=== PATIENT | male | born 1950 | race Two or more races ===

== ENCOUNTER 2017-03-06 22:40 | Inpatient (IN) | payer MEDICARE ==
[~2017-03-06] VITALS: Ht 182.9 cm; Wt 77.1 kg
[2017-03-06 23:00] VITALS: BP 136/63
[2017-03-06] MEDS ORDERED: MAG HYDROX/AL HYDROX/SIMETH 30 ML UDC PO PRN (23:00)
[2017-03-06] MEDS ORDERED: OLANZAPINE 10 MG VIAL IM ONE ×2 (23:00→23:30)
[2017-03-06] MEDS ORDERED: MAGNESIUM HYDROXIDE 30 ML UDC PO PRN (23:00)
--- NOTE | 2017-03-06 23:10 | NUR ---
GPS/RN PATIENT BECAME AGITATED, COMBATIVE, AGGRESSIVE, YELLING/SCREAMING, THREATENING STAFF SOON HE ARRIVED IN THE UNIT. CALLED SECURITY. CALLED DR. ZALDIVAR FOR IM ORDER AND INFORMED ABOUT PATIENT'S BEHAVIOR. ORDERED ZYPREXA 10MG IM NOTED AND CARRIED OUT. PREPARE AND ADMINISTER. PT TOLERATED WELL. V/S STABLE. WILL CONTINUE TO MONITOR FOR SAFETY AND BEHAVIOR [id number].
--- NOTE | 2017-03-06 23:10 | NUR ---
REFUSED MRSA SWAB.
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
[2017-03-07] MEDS ORDERED: LORAZEPAM 0.5 MG TABLET ONE (00:05)
[2017-03-07] MEDS ORDERED: TEMAZEPAM 7.5 MG CAPSULE ONE (00:06)
[2017-03-07] MEDS: TEMAZEPAM 7.5 MG CAPSULE PO PRN ×2 (00:12→21:59)
[2017-03-07 01:58] VITALS: BP 136/63
[2017-03-07] MEDS ORDERED: HYDROCODONE/APAP 5/325MG 1 EACH TABLET PO PRN (02:00)
[2017-03-07] MEDS: LORAZEPAM 0.5 MG TABLET PO PRN (03:11)
[2017-03-07 06:32] LABS: BASOPHILS % (AUTO) 0.5 % (0.0-2.0); EOSINOPHILS # (AUTO) 0.1 /CMM (0.0-0.7); EOSINOPHILS % (AUTO) 1.8 % (0.0-6.0); HEMATOCRIT 35 % (39-51); HEMOGLOBIN 11.5 g/dL (13.5-17.5); LYMPHOCYTES # (AUTO) 1.7 /CMM (0.8-4.8); LYMPHOCYTES % (AUTO) 25.6 % (20.0-44.0); MEAN CORPUSCULAR HEMOGLOBIN 29 PG (26.0-33.0); MEAN CORPUSCULAR HGB CONC 33 g/dl (31.0-36.0); MEAN CORPUSCULAR VOLUME 89 fL (80-96); MONOCYTES # (AUTO) 0.4 /CMM (0.1-1.30); MONOCYTES % (AUTO) 6.1 % (2.0-12.0); NEUTROPHILS # (AUTO) 4.3 /CMM (1.8-8.9); PLATELET COUNT (AUTO) 212 /CMM (150-450); RDW COEFFICIENT OF VARIATION 14.3 (11.5-15.0); WHITE BLOOD COUNT (AUTO) 6.5 K/uL (4.3-11.0)
[2017-03-07] MEDS ORDERED: OLANZAPINE 10 MG VIAL IM ONE ×2 (06:32→07:00)
--- NOTE | 2017-03-07 07:16 | NUR ---
GPS-RN PT IS AGITATED, AGGRESSIVE, THREATENING STAFF. CALLED DR ZALDIVAR FOR IM ORDER. BY THE TIME CHARGE NURSE WAS ABOUT TO GIVE THE IM SHOT. PT STARTED TO CALM DOWN AND COOPERATE WITH THE STAFF. WASTED ZYPREXA 10MG. WILL CONTINUE TO MONITOR FOR SAFETY AND BEHAVIOR [id number].
[2017-03-07] MEDS ORDERED: NAPR500T3 PO (07:35)
[2017-03-07] MEDS ORDERED: CYCL5TAB PO (07:35)
[2017-03-07 07:40] LABS: ALBUMIN 3.2 g/dL (3.4-5.0); BILIRUBIN,TOTAL 0.2 mg/dL (0.2-1.0); CALCIUM, SERUM 9.5 mg/dL (8.5-10.1); CREATININE 0.9 mg/dL (0.6-1.3); POTASSIUM 4.9 mmol/L (3.5-5.1)
[2017-03-07 07:43] LABS: CHOLESTEROL 146 mg/dL (<200); HDL CHOLESTEROL 51 mg/dL (40-60); LDL 84 mg/dL (0-99); TRIGLYCERIDES 95 mg/dL (30-150)
[2017-03-07 08:00] VITALS: BP 113/57
[2017-03-07] MEDS ORDERED: FIXODENT 1 EA TUBE MM PRN (09:30)
[2017-03-07] MEDS: DIVALPROEX SODIUM 125 MG CAP.SPRINK PO SCH ×2 (13:50→21:19)
[2017-03-07] MEDS: OLANZAPINE 5 MG/TAB.RAPDIS PO SCH ×2 (13:50→17:57)
[2017-03-07] MEDS: CYCLOBENZAPRINE 10 MG TABLET PO SCH ×2 (13:50→17:00)
[2017-03-07 16:00] VITALS: BP 134/66
[2017-03-07] MEDS: NAPROXEN 500 MG TABLET PO SCH (17:00)
[2017-03-07 20:00] VITALS: BP 109/55
[2017-03-08 08:00] VITALS: BP 114/69
[2017-03-08] MEDS: OLANZAPINE 5 MG/TAB.RAPDIS PO SCH ×3 (08:59→16:25)
[2017-03-08] MEDS: CYCLOBENZAPRINE 10 MG TABLET PO SCH ×3 (09:00→16:25)
[2017-03-08] MEDS: NAPROXEN 500 MG TABLET PO SCH ×2 (09:00→16:29)
[2017-03-08] MEDS: DIVALPROEX SODIUM 125 MG CAP.SPRINK PO SCH ×2 (09:00→21:00)
[2017-03-08] MEDS: LORAZEPAM 0.5 MG TABLET PO PRN (09:01)
--- NOTE | 2017-03-08 12:40 | NUR ---
GPS RN NOTE: PATIENT REFUSED MEDICATIONS 1300 DR ZALDIVAR AWARE NO NEW ORDERS AT THIS TIME
[2017-03-08 15:47] VITALS: BP 127/67
[2017-03-08 19:55] VITALS: BP 113/60
[2017-03-09 08:00] VITALS: BP 123/72
[2017-03-09] MEDS: CYCLOBENZAPRINE 10 MG TABLET PO SCH ×3 (08:04→16:38)
[2017-03-09] MEDS: NAPROXEN 500 MG TABLET PO SCH ×2 (08:04→16:37)
[2017-03-09] MEDS: OLANZAPINE 5 MG/TAB.RAPDIS PO SCH ×2 (08:10→16:38)
[2017-03-09] MEDS: DIVALPROEX SODIUM 125 MG CAP.SPRINK PO SCH ×2 (08:10→21:00)
--- NOTE | 2017-03-09 09:39 | NUR ---
GPS/RN PT REFUSED 0900 MEDS OFFERED X3. PT TOOK SELECTIVE MEDS,PT IS PARANOID HYPERVERBAL, EXPLAINED OF BENEFITS OF MEDS STILL REFUSED
[2017-03-09] MEDS: LORAZEPAM 0.5 MG TABLET PO PRN (10:46)
--- NOTE | 2017-03-09 10:57 | NUR ---
GPS RN: PATIENT IS INCREASINGLY ANXIOUS, RESTLESS, HYPERVERBAL, WITH EPISODES OF, CONFUSED, HARD TO REDIRECT. ADMINISTERED ATIVAN 0.5MG PO PRN ORDERED. VS STABLE, CONTINUE TO MONITOR
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
[2017-03-09] MEDS ORDERED: OLANZAPINE 10 MG VIAL IM STA ×2 (12:01→12:13)
--- NOTE | 2017-03-09 13:11 | NUR ---
GPS RN: PATIENT IS INCREASINGLY ANXIOUS,COMBATIVE, THREATENING TO STAFF, RESTLESS, HYPERVERBAL, WITH EPISODES OF, CONFUSED, HARD TO REDIRECT. ESCORTED TO PT BACK TO ROOM TO DECREASE STIMULI. PROVIDE A CALM AND QUIET ENVIRONMENT. PT STILL AGGRESSIVE, NON-REDIRECTABLE, UNABLE TO FOLLOW RULES. WAS NOTIFIED ABOUT PT'S BEHAVIOR. DR. ZALDIVAR ORDERED ZYPREXA 10 MG IM. VS STABLE, CONTINUE TO MONITOR FOR SAFETY AND BEHAVIOR EVERY 30 MINUTES.
--- NOTE | 2017-03-09 13:28 | NUR ---
WOUND CARE CONSULT: PATIENT SEEN, SKIN ASSESSMENT NOT DONE DUE TO PATIENT AGGRESSIVE PER NURSING STAFF AND HE WAS JUST GIVEN INJECTIBLE MEDICATION. WILL FOLLOW UP AT A LATER TIME WHEN PATIENT CONDITION PERMITS.
--- NOTE | 2017-03-09 14:34 | NUR ---
GPS/RN PT REFUSED 1300 PM MEDS OFFERED X3,PT IS PARANOID HYPERVERBAL, EXPLAINED OF BENEFITS OF MEDS STILL REFUSED
[2017-03-09 16:00] VITALS: BP 124/65
--- NOTE | 2017-03-09 16:12 | NUR ---
Initial Discharge Plan: Patient is homeless in [facility]. Human Resources Intern asked him if he wanted placement or prison. Patient stated that he wanted "nothing." Human Resources Intern will follow-up with MD, and patient regarding appropriate discharge and will help form a safe and proper discharge. Human Resources Intern will provide patient with substance abuse and smoking cessation referrals to patient upon discharge.
[2017-03-09 19:41] VITALS: BP 128/79
[2017-03-10 08:00] VITALS: BP 154/71
[2017-03-10] MEDS: OLANZAPINE 5 MG/TAB.RAPDIS PO SCH ×2 (08:17→16:06)
[2017-03-10] MEDS: DIVALPROEX SODIUM 125 MG CAP.SPRINK PO SCH ×2 (08:17→21:24)
[2017-03-10] MEDS: NAPROXEN 500 MG TABLET PO SCH ×2 (08:17→16:05)
[2017-03-10] MEDS: CYCLOBENZAPRINE 10 MG TABLET PO SCH ×3 (08:17→16:05)
--- NOTE | 2017-03-10 08:51 | NUR ---
Reviewed psychosocial done by Marisa Nguyen and concur.
--- NOTE | 2017-03-10 08:54 | NUR ---
[email or web address] Addendum: 03/10/17 at 0911 by JAZ GORMAN Amended: Links added.
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
--- NOTE | 2017-03-10 14:56 | NUR ---
Steel Spar Operator spoke to patient regarding his discharge plan. According to the 5150 patient has been homeless for many years and lives in [facility]. 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
[2017-03-10 15:11] VITALS: BP 145/81
[2017-03-10 20:02] VITALS: BP 144/85
[2017-03-11 08:00] VITALS: BP 160/74
[2017-03-11] MEDS: NAPROXEN 500 MG TABLET PO SCH ×2 (08:28→16:13)
[2017-03-11] MEDS: CYCLOBENZAPRINE 10 MG TABLET PO SCH ×3 (08:28→16:13)
[2017-03-11] MEDS: DIVALPROEX SODIUM 125 MG CAP.SPRINK PO SCH ×2 (08:29→20:44)
[2017-03-11] MEDS: OLANZAPINE 5 MG/TAB.RAPDIS PO SCH ×2 (08:29→16:12)
[2017-03-11] MEDS ORDERED: DIVALPROEX SODIUM 250 MG TABLET.DR PO STA (11:06)
[2017-03-11] MEDS ORDERED: OLANZAPINE 10 MG VIAL IM PRN (11:30)
[2017-03-11] MEDS: LORAZEPAM 0.5 MG TABLET PO PRN (14:30)
--- NOTE | 2017-03-11 14:30 | NUR ---
GPS/RN PATIENT AGITATED, ANXIOUS, PACING IN HALLWAY, YELLING, INTRUSIVE, NON REDIRECTABLE, ADMINISTERED ATIVAN PO ORDERED, , WILL CONTINUE TO MONITOR Q 15 MIN FOR SAFETY AND BEHAVIOR.
[2017-03-11 16:00] VITALS: BP 128/74
[2017-03-11 20:42] VITALS: BP 123/52
[2017-03-12 08:09] VITALS: BP 105/60
[2017-03-12] MEDS: NAPROXEN 500 MG TABLET PO SCH ×3 (08:34→17:18)
[2017-03-12] MEDS: OLANZAPINE 5 MG/TAB.RAPDIS PO SCH ×2 (08:34→17:18)
[2017-03-12] MEDS: CYCLOBENZAPRINE 10 MG TABLET PO SCH ×3 (08:35→17:18)
[2017-03-12] MEDS: DIVALPROEX SODIUM 125 MG CAP.SPRINK PO SCH ×3 (08:37→20:13)
--- NOTE | 2017-03-12 09:15 | NUR ---
GPS/RN PATIENT SELECTIVE WITH MEDICATIONS, REFUSED DEPAKOTE 500MG, NAPROXEN 500MG, EXPLAINED RISKS AND BENEFITS, CONTINUES TO ADAMANTLY REFUSE, WILL CONTINUE TO ENCOURAGE AND EDUCATE PATIENT ON THE IMPORTANCE OF COMPLYING WITH MD REGIMEN.
[2017-03-12 15:48] VITALS: BP 119/65
--- NOTE | 2017-03-12 19:12 | NUR ---
GPS/RN NOTE: PATIENT IS SITTING AT THE DINING AREA WITH THE ROOM MATE. NO APPARENT DISTRESS NOTED.
[2017-03-12 20:00] VITALS: BP 121/78
[2017-03-12] MEDS: ACETAMINOPHEN 325 MG TABLET PO PRN (21:17)
--- NOTE | 2017-03-12 21:17 | NUR ---
GPS/RN NOTE: C/O HEADACHE, 3/10 ON PAIN SCALE, TYLENOL 650 MG TAB 1 PO GIVEN.
[2017-03-13] MEDS: TEMAZEPAM 7.5 MG CAPSULE PO PRN (01:12)
--- NOTE | 2017-03-13 01:13 | NUR ---
GPS/RN NOTE: REQUESTING FOR SLEEPING PILL, TEMAZEPAM 7.5 MG CAP 1 PO GIVEN.
[2017-03-13 08:02] VITALS: BP 125/56
[2017-03-13] MEDS: DIVALPROEX SODIUM 125 MG CAP.SPRINK PO SCH ×2 (09:00→20:49)
[2017-03-13] MEDS: OLANZAPINE 5 MG/TAB.RAPDIS PO SCH ×3 (09:34→17:30)
[2017-03-13] MEDS: NAPROXEN 500 MG TABLET PO SCH ×2 (09:34→17:30)
[2017-03-13] MEDS: CYCLOBENZAPRINE 10 MG TABLET PO SCH ×3 (09:34→17:30)
--- NOTE | 2017-03-13 12:43 | NUR ---
Security Shift Supervisor faxed initial review packet to [facility] (fax [phone]/ phone:[phone]) social media content specialist will follow-up.
[2017-03-13] MEDS ORDERED: OLANZAPINE 10 MG VIAL IM PRN (13:00)
--- NOTE | 2017-03-13 13:59 | NUR ---
speeder worker spoke to Elma from [facility] [address] [place] [address]. who stated that they would send their DON Emersonne to assess the patient Wednesday March 15, 2017 between 8:00- 9:00am. Residential Construction Instructor will follow-up with Elma on Thursday.
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
[2017-03-13 15:35] VITALS: BP 110/60
--- NOTE | 2017-03-13 19:38 | NUR ---
GPS/RN NOTE: AWAKE, ALERT, UP AMBULATING. NO APPARENT DISTRESS NOTED.
[2017-03-13 20:00] VITALS: BP 123/68
--- NOTE | 2017-03-13 20:55 | NUR ---
GPS/RN NOTE: PATIENT ASKED FOR HIS DEPAKOTE SPRINKLE 500 MG, REFUSED DURING TIME OF ADMINISTRATION, PATIENT STATED, " I CAN'T TAKE THAT MEDICINE, TOO MUCH FOR ME."
[2017-03-14 08:00] VITALS: BP 108/56
[2017-03-14] MEDS: NAPROXEN 500 MG TABLET PO SCH ×3 (08:59→18:10)
[2017-03-14] MEDS: CYCLOBENZAPRINE 10 MG TABLET PO SCH ×3 (08:59→18:10)
[2017-03-14] MEDS: OLANZAPINE 5 MG/TAB.RAPDIS PO SCH ×3 (08:59→18:10)
[2017-03-14] MEDS: DIVALPROEX SODIUM 125 MG CAP.SPRINK PO SCH ×2 (09:00→21:00)
[2017-03-14] MEDS: LORAZEPAM 0.5 MG TABLET PO PRN (12:40)
--- NOTE | 2017-03-14 12:40 | NUR ---
ADMINISTERED ATIVAN 0.5 MG PO PRN FOR ANXIETY PER PATIENT REQUEST, V/S TAKEN BP- 110/62, P-57, CONTINUED MONITORING.
[2017-03-14 16:00] VITALS: BP 119/76
--- NOTE | 2017-03-14 19:51 | NUR ---
GPS/RN NOTE: PATIENT UP AND ABOUT, PACING AROUND THE UNIT. APPEARS NOT IN DISTRESS. CALM, AND NO AGITATION NOTED. RESPONDS WELL WHEN ENGAGED.
[2017-03-14 20:02] VITALS: BP 117/78
--- NOTE | 2017-03-14 21:45 | NUR ---
GPS/RN NOTE: PATIENT BACK IN HIS ROOM. OFFERED HIS ROUTINE NIGHT MEDICATION, DEPAKOTE 500 MG CAP. PATIENT REFUSED, EXPLAINED BENEFITS X2, STILL REFUSED.
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
--- NOTE | 2017-03-15 06:32 | NUR ---
GPS/RN NOTE: PAGED AND SPOKE TO DR. LARA, NOTIFIED ABOUT PATIENT HAVING SLIPPED OUT OF THE UNIT, OBTAINED ORDER TO HAVE A 1:1 SITTER FOR SAFETY. SAID, " IT'S OKAY."
--- NOTE | 2017-03-15 06:39 | NUR ---
GPS/RN NOTE: PATIENT REMAINS INSIDE HIS ROOM. PATIENT IS MONITORED CLOSELY FOR AWOL RISK AND TO MAINTAIN SAFETY.
--- NOTE | 2017-03-15 06:42 | NUR ---
GPS/RN NOTE: PATIENT REFUSED SKIN ASSESSMENT. WILL TRY LATER TODAY
[2017-03-15 08:00] VITALS: BP 123/75
[2017-03-15] MEDS: NAPROXEN 500 MG TABLET PO SCH ×2 (08:18→17:15)
[2017-03-15] MEDS: OLANZAPINE 5 MG/TAB.RAPDIS PO SCH ×3 (08:18→17:15)
[2017-03-15] MEDS: CYCLOBENZAPRINE 10 MG TABLET PO SCH ×3 (08:18→17:15)
[2017-03-15] MEDS: DIVALPROEX SODIUM 125 MG CAP.SPRINK PO SCH ×2 (09:00→20:27)
--- NOTE | 2017-03-15 12:44 | NUR ---
GPS/RN SITTER I:1 DISCONTINUED THE DOORS KEYPADS WERE DISABLED BY MED ADMIN.DR LARA AND TELECOMMUNICATIONS SUPPORT AWARE.
[2017-03-15 16:19] VITALS: BP 113/64
--- NOTE | 2017-03-15 19:34 | NUR ---
GPS/RN NOTE: Received awake, alert, oriented x3, sitting at the dining area with other patients. No acute respiratory distress noted.
[2017-03-15 19:51] VITALS: BP 128/70
--- NOTE | 2017-03-15 20:27 | NUR ---
PS/RN NOTE: DEPAKOTE 500 MG PO REFUSED BY PATIENT. EXPLAINED BENEFITS X2, STILL REFUSED.
--- NOTE | 2017-03-15 22:01 | NUR ---
GPS/RN NOTE: REFUSED SKIN ASSESSMENT. WENT TO BED AND SLEPT.
[2017-03-16 08:00] VITALS: BP 154/79
[2017-03-16] MEDS: NAPROXEN 500 MG TABLET PO SCH ×2 (08:12→17:09)
[2017-03-16] MEDS: CYCLOBENZAPRINE 10 MG TABLET PO SCH ×3 (08:12→17:09)
[2017-03-16] MEDS: OLANZAPINE 5 MG/TAB.RAPDIS PO SCH ×3 (08:12→17:10)
[2017-03-16] MEDS: DIVALPROEX SODIUM 125 MG CAP.SPRINK PO SCH ×2 (08:15→21:44)
--- NOTE | 2017-03-16 11:57 | NUR ---
shearing shed worker spoke to Elma from [facility] [address] [facility] [place] [address]. who stated that they were not able to accept the patient because she believes he is an elopement risk and because of his hx of drug use.
--- NOTE | 2017-03-16 12:12 | NUR ---
technicians and trades workers faxed clinicals to [facility] . technicians and trades workers will follow-up.
--- NOTE | 2017-03-16 15:27 | NUR ---
park worker supervisor spoke with Edd from [facility] (fax: [phone]/ ) who stated that they could not accept the patient because of his behaviors.
--- NOTE | 2017-03-16 15:31 | NUR ---
Turpentine Farmer spoke to CJ (fax [phone]/ phone:[phone]) from [facility] who stated that they cannot accept the patient due to his behaviors.
--- NOTE | 2017-03-16 15:33 | NUR ---
wind up worker spoke to patient who stated that he would like to return to [facility] or [facility] to a alf because he wants to get his car back.
[2017-03-16 16:00] VITALS: BP 119/69
--- NOTE | 2017-03-16 16:21 | NUR ---
warehouse production worker spoke to Fernanda Holloway (Becky) from the [facility] who stated that she was familiar with the patient. She stated that she was going to contact patient's lead security officer to determine the patient's transportation back to [facility]. warehouse production worker will follow-up tomorrow. Addendum: 03/17/17 at 1503 by DIANE REYES SW Fernanda Marte) ([phone]) is a case preparer and liner for [employer].
[2017-03-16 19:54] VITALS: BP 110/65
[2017-03-16] MEDS: ACETAMINOPHEN 325 MG TABLET PO PRN (21:44)
[2017-03-17 08:00] VITALS: BP 148/77
[2017-03-17] MEDS: OLANZAPINE 5 MG/TAB.RAPDIS PO SCH ×3 (08:14→16:10)
[2017-03-17] MEDS: CYCLOBENZAPRINE 10 MG TABLET PO SCH ×3 (08:14→16:09)
[2017-03-17] MEDS: DIVALPROEX SODIUM 125 MG CAP.SPRINK PO SCH (08:15)
[2017-03-17] MEDS: NAPROXEN 500 MG TABLET PO SCH (08:16)
[2017-03-17] MEDS ORDERED: NAPROXEN 500 MG TABLET PO PRN (13:30)
--- NOTE | 2017-03-17 15:01 | NUR ---
panel lay up worker attempted to contact patient's brother ([phone]) however, it is a non-working number.
[2017-03-17 16:00] VITALS: BP 107/64
--- NOTE | 2017-03-17 19:38 | NUR ---
GPS/RN NOTE: PATIENT LYING IN BED, AWAKE, NO ACUTE DISTRESS NOTED.
[2017-03-17 19:58] VITALS: BP 144/66
--- NOTE | 2017-03-17 20:41 | NUR ---
GPS/RN NOTE: PATIENT TOOK [address] ZALDIVAR. PATIENT REFUSED 750 MG, CHANGED THE DOSE TO 500 MG.
[2017-03-17] MEDS ORDERED: DIVALPROEX SODIUM 125 MG CAP.SPRINK PO SCH (22:00)
[2017-03-17] MEDS ORDERED: DIVALPROEX SODIUM 500 MG TABLET.DR PO SCH (22:00)
[2017-03-18 06:48] LABS: BASOPHILS % (AUTO) 0.6 % (0.0-2.0); EOSINOPHILS # (AUTO) 0.1 /CMM (0.0-0.7); EOSINOPHILS % (AUTO) 1.4 % (0.0-6.0); HEMATOCRIT 38 % (39-51); HEMOGLOBIN 12.4 g/dL (13.5-17.5); LYMPHOCYTES # (AUTO) 2.1 /CMM (0.8-4.8); LYMPHOCYTES % (AUTO) 30.6 % (20.0-44.0); MEAN CORPUSCULAR HEMOGLOBIN 29 PG (26.0-33.0); MEAN CORPUSCULAR HGB CONC 33 g/dl (31.0-36.0); MEAN CORPUSCULAR VOLUME 88 fL (80-96); MONOCYTES # (AUTO) 0.5 /CMM (0.1-1.30); MONOCYTES % (AUTO) 6.6 % (2.0-12.0); NEUTROPHILS # (AUTO) 4.2 /CMM (1.8-8.9); NEUTROPHILS % (AUTO) 60.8 % (43.0-81.0); PLATELET COUNT (AUTO) 221 /CMM (150-450); RDW COEFFICIENT OF VARIATION 14.1 (11.5-15.0); WHITE BLOOD COUNT (AUTO) 6.8 K/uL (4.3-11.0)
[2017-03-18 06:59] LABS: CALCIUM, SERUM 9.2 mg/dL (8.5-10.1); CREATININE 0.7 mg/dL (0.6-1.3); POTASSIUM 4.4 mmol/L (3.5-5.1)
[2017-03-18 08:00] VITALS: BP 129/65
[2017-03-18] MEDS: CYCLOBENZAPRINE 10 MG TABLET PO SCH ×3 (08:26→16:01)
[2017-03-18] MEDS: OLANZAPINE 5 MG/TAB.RAPDIS PO SCH ×3 (08:26→16:01)
--- NOTE | 2017-03-18 11:04 | NUR ---
Computer Programmer spoke to patient's son Tam ([phone]) who stated that she had not spoken to the patient since October 2016. Patient's son stated that there is not much that he can do because he lives in [place]. Patient's son provided phone numbers for patient's brothers Hiram ([phone]) and Wilian ([phone]). plate worker helper will follow-up.
--- NOTE | 2017-03-18 13:27 | NUR ---
Patient Access Specialist faxed clinicals to [facility] (fax:[phone]/ ) from [facility]. horticultural worker will follow-up.
--- NOTE | 2017-03-18 13:32 | NUR ---
wireworker attempted to contact patient's brother Wilian ([phone]) however the person who answered stated that he did not know a Papo Hina and the other number was a non-working number.
[2017-03-18] MEDS: DIVALPROEX SODIUM 500 MG TABLET.DR PO SCH ×2 (13:46→16:01)
--- NOTE | 2017-03-18 14:35 | NUR ---
GPS RN NOTE: PATIENT TRY TO CONTACT A BROTHER ,UNABLE TO GET PHONE NUMBER, GOT UPSET AND AGITATED THROUGH PHONE ON THE FLOOR AND BROKE IT.PT REFUSED MEDICATION PRN . DR ZALDIVAR NOTIFIED NO ORDERS AT THIS TIME
--- NOTE | 2017-03-18 14:42 | NUR ---
community organization worker spoke to Kenisha ([phone]) from [facility] who wanted to be informed when patient is discharged so that she may provide him with mental health services. Split Leather Department Supervisor will follow-up.
[2017-03-18 16:00] VITALS: BP 109/79
[2017-03-18 20:18] VITALS: BP 115/66
[2017-03-19 08:00] VITALS: BP 140/70
[2017-03-19] MEDS: DIVALPROEX SODIUM 500 MG TABLET.DR PO SCH (09:00)
[2017-03-19] MEDS: CYCLOBENZAPRINE 10 MG TABLET PO SCH ×2 (09:05→13:10)
[2017-03-19] MEDS: OLANZAPINE 5 MG/TAB.RAPDIS PO SCH ×2 (09:05→13:10)
--- NOTE | 2017-03-19 11:58 | NUR ---
GPS RN: ADMINISTERED ATIVAN 1MG PO ORDERED FOR C/O ANXIETY AND RESTLESSNESS, VS STABLE, CONTINUE TO MONITOR.
--- NOTE | 2017-03-19 12:05 | NUR ---
VITA followed up with [facility] [phone] who informed that pt. was accepted at their sister facility, [place] [id number]. [phone]. VITA spoke with pt. and pt. agrees to go at this time. VITA notified [facility] and gave information to RN to call for a report. Ambulance is scheduled for 2:00PM.
--- NOTE | 2017-03-19 14:30 | NUR ---
GPS DAIRY PROCESSING SUPERVISOR NOTES: Patient discharged to [facility]. Patient condition is stable for discharge, VS stable, patient denies SI/HI at the time of discharge. All belongings and valuables returned to the patient. Property management form signed. Patient refused photos. Educational exit care printed, signed and provided to the patient. Meds reconciled and the copy of the current med list attached with the discharge paperwork. Report given to Jayy JUSTICE at the facility. Patient left the unit on a gurney via [facility].
[2017-03-19] MEDS ORDERED: LORAZEPAM 0.5 MG TABLET PO PRN (17:00)
--- NOTE | 2017-03-20 11:25 | NUR ---
Discharge note: Pt. was discharged to [address] [address]. [phone] via [facility]. Pt. was calm and cooperative, denied suicidal/homicidal ideations and hallucinations. Pt. agreed with the discharge plan. Kenisha ([phone]) from [facility] was notified via voicemail. Discharge paperwork has been signed and discharge instructions were provided to the facility.
== END 2017-03-19 14:30 | DRG 885 ==
LOC: GPS 22:40
PROVIDERS: ADMIT Psychiatry & Neurology Psychosomatic Medicine; ATTEND Internal Medicine
DX: F25.0 Schizoaffective disorder, bipolar type (principal); E44.1 Mild protein-calorie malnutrition; Z91.19 Patient's noncompliance with other medical treatment and regimen; F29 Unspecified psychosis not due to a substance or known physiological condition; Z59.0 Homelessness; G89.29 Other chronic pain; Z73.6 Limitation of activities due to disability; F19.90 Other psychoactive substance use, unspecified, uncomplicated; E88.09 Other disorders of plasma-protein metabolism, not elsewhere classified; Z68.23 Body mass index [BMI] 23.0-23.9, adult
CPT/HCPCS: 36415; 80048-TC; 80053-TC; 80061-TC; 83735-TC; 84100-TC; 85025-TC; J3490